=== PATIENT | female | born 1965 | race African-American/Black ===

== ENCOUNTER 2017-08-18 11:17 | Emergency (ER) | payer OTHER ==
[~2017-08-18] VITALS: Ht 162.6 cm; Wt 55.8 kg
[~2017-08-18 11:17] MED LIST: ACYCLOVIR400 MG PO; ACYCLOVIR800 MG PO; ADVAIR 100/501 DISK IH; ADVAIR 250/501 DISK IH; ADVAIR HFA120 INHALA IH; ALBUTEROL2.5 MG/3 M IH; ALPRAZOLAM0.5 MG PO; AMLODIPINE BESY10 MG PO; APRESOLINE50 MG PO; ATROVENT 00.5 MG/2.5 IH; AUGMENTIN875 MG PO; AVELOX400 MG PO; BAYER ADVANCED500 MG PO; BUSPAR15 MG PO; BUSPAR5 MG PO; CALCIUM CARBON600 M1 PO; CATAPRES0.1 MG PO; CLEOCIN150 MG PO; CLONIDINE1 EAC1 TD; COMBIVENT INH14.7 GM IH; COMBIVENT RESPIM4 GM IH; Desyrel PO; ENDOCET 5-3251 EACH PO; ESCITALOPRAM OX10 MG PO; EYE DROP TEARS15 ML BOTH EYES; FAMOTIDINE20 MG PO; FLAGYL500 MG PO; FLORANEX GRANU1 EACH PO; FORTAMET500 M1 PO; FUROSEMIDE40 MG PO; GLUCOPHAGE500 MG PO; IBUPROFEN600 MG PO; IMODIUM MS REL1 EACH PO; IPRATR-ALBUTEROL3 ML IH; ISENTRESS400 MG PO; ISONIAZID,INH300 MG PO; K-DUR20 MEQ PO; KLOR-CON M2020 MEQ PO; LEVAQUIN750 MG PO; LEVEMIR FL100 UNIT/1 SC; LEVOFLOXACIN750 MG PO; LEXAPRO20 MG PO; LISINOPRIL20 MG PO; LISINOPRIL40 MG PO; LITHIUM CARBON150 MG PO; LITHIUM CARBON300 M1 PO; LITHIUM CARBON300 MG PO; LOPRESSOR50 MG PO; LYRICA75 MG PO; METFORMIN HCL500 MG PO; METHYLPREDNISOLO4 MG PO; METOPROLOL SUC100 MG PO; METOPROLOL TART50 MG PO; NAPROXEN500 M1 PO; NAPROXEN500 MG PO; NICODERM CQ1 EAC2 TD; NICOTINE PATCH1 EAC2 TD; NORVASC10 MG PO; NORVASC2.5 MG PO; NORVIR100 M1 PO; NORVIR100 MG PO; NOVOLOG PE100 UNITS/ SC; OLANZAPINE10 MG PO; PERCOCET 10/1 TABLET; PERCOCET 5/31 TABLET PO; POTASSIUM CHLO20 ME1 PO; PRAVASTATIN SOD40 MG PO; PREDNISONE PO; PREDNISONE10 MG PO; PREDNISONE20 MG PO; PREDNISONE50 MG PO; PREZISTA400 MG PO; PREZISTA800 MG PO; PROAIR HFA8.5 GM IH; PROVENTIL HFA6.7 GM IH; PROVENTIL,2.5 MG/3 M IH; Proventil,Ventolin H IH; QUETIAPINE FUMA50 MG PO; REYATAZ300 MG PO; SEROQUEL100 MG PO; SEROQUEL50 MG PO; SPIRIVA1 INHALATI IH; TRAZODONE HCL50 MG PO; TRILEPTAL150 MG PO; TRUVADA1 TABLET PO; TYLENOL REGULA325 MG PO; TYLENOL WITH C1 EACH PO; VAGISIL TP; VEETIDS 500500 MG PO; VENTOLIN HFA18 GM IH; VIGAMOX 0.60 DROP/3 BOTH EYES; VITAMIN B-625 MG PO; VITAMIN D250000 UNIT PO; XANAX0.5 MG PO; ZANTAC150 MG PO; ZESTRIL,PRINIVI40 M1 PO; ZESTRIL,PRINIVI40 MG PO; ZESTRIL40 MG PO; ZITHROMAX500 MG PO; ZOFRAN ODT4 MG PO; ZOVIRAX400 MG PO; ZOVIRAX800 M1 PO; ZYPREXA10 MG PO; amlodipine besylate
[2017-08-18] MEDS ORDERED: TYLENOL WITH C1 EACH PO (14:49)
[2017-08-18 16:10] VITALS: BP 155/89
== END 2017-08-18 16:11 | disposition home or self-care (01) ==
LOC: EME 11:17
DX: S60.211A Contusion of right wrist, initial encounter (principal); S80.01XA Contusion of right knee, initial encounter; M54.2 Cervicalgia; M54.9 Dorsalgia, unspecified; Y08.02XA Assault by strike by baseball bat, initial encounter; Y92.039 Unspecified place in apartment as the place of occurrence of the external cause; M32.9 Systemic lupus erythematosus, unspecified; E11.9 Type 2 diabetes mellitus without complications; I10 Essential (primary) hypertension; B20 Human immunodeficiency virus [HIV] disease; K21.9 Gastro-esophageal reflux disease without esophagitis; J44.9 Chronic obstructive pulmonary disease, unspecified; F41.9 Anxiety disorder, unspecified; F32.9 Major depressive disorder, single episode, unspecified; F31.9 Bipolar disorder, unspecified; F17.200 Nicotine dependence, unspecified, uncomplicated; Z88.5 Allergy status to narcotic agent
CPT/HCPCS: 70450; 72125; 73090; 73110; 73552; 73564; 99281; 99285; J1885; J3010